=== PATIENT | female | born 1955 | race Caucasian/White ===

== ENCOUNTER 2021-09-02 13:50 | Inpatient (IN) | payer MEDICARE ==
[~2021-09-02] VITALS: Ht 175.3 cm; Wt 86.2 kg
[2021-09-02 14:45] LABS: HEMOGLOBIN 12.7 gm/dl (12.3-15.3); RED BLOOD COUNT 3.9 M/UL (4.00-5.10); WHITE BLOOD COUNT 17.7 K/UL (4.5-11.0)
[2021-09-02 14:59] LABS: BUN/CREATININE RATIO 19 (0-10)
[2021-09-02] MEDS ORDERED: HYDROCODON-ACE1 EAC6 PO (18:33)
[2021-09-02] MEDS ORDERED: PAROXETINE HCL40 MG PO (18:33)
[2021-09-02] MEDS ORDERED: AMLODIPINE BES2.5 MG PO (18:33)
[2021-09-02] MEDS ORDERED: TRELEGY ELLIPT1 EACH INH (18:34)
[2021-09-02] MEDS ORDERED: TIZANIDINE HCL4 MG PO (18:34)
[2021-09-02] MEDS ORDERED: MONTELUKAST SOD10 MG PO (18:34)
[2021-09-02] MEDS ORDERED: IPRAT-ALBUT 0.5-3 ML INH (18:35)
[2021-09-02] MEDS ORDERED: LOSARTAN POTAS100 MG PO (18:35)
[2021-09-02] MEDS ORDERED: MULTIVITAMIN1 EACH PO (18:35)
[2021-09-03 03:10] LABS: HEMOGLOBIN 11.8 gm/dl (12.3-15.3); RED BLOOD COUNT 3.68 M/UL (4.00-5.10)
[2021-09-03 03:31] LABS: WHITE BLOOD COUNT 13.1 K/UL (4.5-11.0)
[2021-09-03 03:53] LABS: BUN/CREATININE RATIO 21 (0-10)
[2021-09-03 10:42] LABS: BORDETELLA PARAPERTUSSIS Not Detected (Not Detectd); BORDETELLA PERTUSSIS Not Detected (Not Detectd); CHLAMYDIA PNEUMONIAE Not Detected (Not Detectd); CORONAVIRUS HKU1 Not Detected (Not Detectd); CORONAVIRUS NL63 Not Detected (Not Detectd); CORONAVIRUS OC43 Not Detected (Not Detectd); CORONOAVIRUS 229E Not Detected (Not Detectd); HUMAN METAPNEUMOVIRUS Not Detected (Not Detectd); HUMAN RHINOVIRUS/ENTEROVIRUS Not Detected (Not Detectd); INFLUENZA A Not Detected (Not Detectd); INFLUENZA B Not Detected (Not Detectd); MYCOPLASMA PNEUMONIAE Not Detected (Not Detectd); PARAINFLUENZA VIRUS 1 Not Detected (Not Detectd); PARAINFLUENZA VIRUS 2 Not Detected (Not Detectd); PARAINFLUENZA VIRUS 3 Not Detected (Not Detectd); PARAINFLUENZA VIRUS 4 Not Detected (Not Detectd); RESPIRATORY SYNCYTIAL VIRUS Not Detected (Not Detectd)
[2021-09-03 12:41] LABS: SARS-CoV-2 NOT DETECTED (Not Detectd)
[2021-09-05 09:06] LABS: RED BLOOD COUNT 3.7 M/UL (4.00-5.10); WHITE BLOOD COUNT 14.2 K/UL (4.5-11.0)
[2021-09-05 09:37] LABS: BUN/CREATININE RATIO 32 (0-10)
[2021-09-05 10:27] LABS: HEMOGLOBIN 11.6 gm/dl (12.3-15.3); RED BLOOD COUNT 3.61 M/UL (4.00-5.10); WHITE BLOOD COUNT 14.2 K/UL (4.5-11.0)
[2021-09-06 04:24] LABS: HEMOGLOBIN 12.2 gm/dl (12.3-15.3); RED BLOOD COUNT 3.79 M/UL (4.00-5.10); WHITE BLOOD COUNT 13.2 K/UL (4.5-11.0)
[2021-09-06 04:52] LABS: BUN/CREATININE RATIO 36 (0-10)
[2021-09-07 03:13] LABS: HEMOGLOBIN 12.8 gm/dl (12.3-15.3); RED BLOOD COUNT 3.96 M/UL (4.00-5.10); WHITE BLOOD COUNT 14.6 K/UL (4.5-11.0)
[2021-09-07 03:52] LABS: BUN/CREATININE RATIO 43 (0-10)
[2021-09-07] MEDS ORDERED: CEFUROXIME500 MG PO (10:37)
[2021-09-07] MEDS ORDERED: CLOPIDOGREL75 MG PO (10:37)
[2021-09-07] MEDS ORDERED: ISOSORBIDE MONO30 MG PO (10:37)
[2021-09-07] MEDS ORDERED: LOPRESSOR 25 MG25 MG PO (10:37)
[2021-09-07] MEDS ORDERED: CRESTOR 10 MG T10 MG PO (10:37)
[2021-09-07] MEDS ORDERED: LASIX40 MG PO (10:37)
[2021-09-07] MEDS ORDERED: ASPIRIN EC81 MG PO (10:37)
== END 2021-09-07 12:05 | disposition home or self-care (01) | DRG 280 ==
LOC: ER1 13:50 → PROG CARE 18:16 → CDU 18:16 → PROG CARE 21:00
PROVIDERS: Emergency Medicine; Internal Medicine Cardiovascular Disease; Physician Assistant; ADMIT Internal Medicine
PROC: 3E0333Z Introduction of Anti-inflammatory into Peripheral Vein, Percutaneous Approach (ICD-10-PCS; principal; 2021-09-02)
PROC: B24BZZ4 Ultrasonography of Heart with Aorta, Transesophageal (ICD-10-PCS; 2021-09-03)
PROC: 4A023N7 Measurement of Cardiac Sampling and Pressure, Left Heart, Percutaneous Approach (ICD-10-PCS; 2021-09-06)
DX: I11.0 Hypertensive heart disease with heart failure (principal); I21.4 Non-ST elevation (NSTEMI) myocardial infarction; J12.2 Parainfluenza virus pneumonia; I50.23 Acute on chronic systolic (congestive) heart failure; J96.11 Chronic respiratory failure with hypoxia; Z20.822 Contact with and (suspected) exposure to COVID-19; E87.2 Acidosis; I43 Cardiomyopathy in diseases classified elsewhere; J43.9 Emphysema, unspecified; F17.210 Nicotine dependence, cigarettes, uncomplicated; E87.6 Hypokalemia; F41.9 Anxiety disorder, unspecified; R73.9 Hyperglycemia, unspecified; Z79.01 Long term (current) use of anticoagulants; Z79.82 Long term (current) use of aspirin; Z99.81 Dependence on supplemental oxygen; Z90.710 Acquired absence of both cervix and uterus; Z88.0 Allergy status to penicillin; Z83.3 Family history of diabetes mellitus; Z80.9 Family history of malignant neoplasm, unspecified
CPT/HCPCS: ECHO; 36415; 36600; 71045; 80048; 80053; 80061; 80307; 82550; 82553; 82803; 83036; 83605; 83735; 83880; 84484; 85025; 85027; 85610; 85730; 87040; 87070; 87077; 87205; 87633; 93005; 93306; 94640; 94664; 94760; 96374; 96375; 99152; 99153; 99285; C1769; C1894; J0456; J0696; J1100; J1644; J1650; J1940; J2185; J2250; J2270; J2930; J3010; J7030; J7040; Q9967; U0002

== ENCOUNTER 2021-09-20 13:52 | Emergency (ER) | payer MEDICARE ==
[~2021-09-20 13:52] MED LIST: AMLODIPINE BES2.5 MG PO; ASPIRIN EC81 MG PO; CEFUROXIME500 MG PO; CLOPIDOGREL75 MG PO; CRESTOR 10 MG T10 MG PO; HYDROCODON-ACE1 EAC6 PO; IPRAT-ALBUT 0.5-3 ML INH; ISOSORBIDE MONO30 MG PO; LASIX40 MG PO; LOPRESSOR 25 MG25 MG PO; LOSARTAN POTAS100 MG PO; MONTELUKAST SOD10 MG PO; MULTIVITAMIN1 EACH PO; PAROXETINE HCL40 MG PO; TIZANIDINE HCL4 MG PO; TRELEGY ELLIPT1 EACH INH
[2021-09-20 14:26] LABS: HEMOGLOBIN 11.5 gm/dl (12.3-15.3); RED BLOOD COUNT 3.73 M/UL (4.00-5.10); WHITE BLOOD COUNT 10.5 K/UL (4.5-11.0)
[2021-09-20 14:47] LABS: BUN/CREATININE RATIO 11 (0-10)
[2021-09-20] MEDS ORDERED: OMNICEF 300 MG300 MG PO (16:07)
== END 2021-09-20 16:10 | disposition home or self-care (01) ==
LOC: ER1 13:52
PROVIDERS: Physician Assistant
DX: N39.0 Urinary tract infection, site not specified (principal); R31.9 Hematuria, unspecified; F17.200 Nicotine dependence, unspecified, uncomplicated; I11.9 Hypertensive heart disease without heart failure; I25.10 Atherosclerotic heart disease of native coronary artery without angina pectoris; I25.2 Old myocardial infarction; E78.5 Hyperlipidemia, unspecified; J44.9 Chronic obstructive pulmonary disease, unspecified
CPT/HCPCS: 80053; 81001; 85025; 85610; 87086; 99283

== ENCOUNTER → 2021-12-23 | Outpatient (CLI) | payer MEDICARE ==
[~2021-12-23] MED LIST changes: +OMNICEF 300 MG300 MG PO
== END ==
LOC: HEART 5 15:00 → ECHO 15:08
DX: I25.10 Atherosclerotic heart disease of native coronary artery without angina pectoris (principal); I50.22 Chronic systolic (congestive) heart failure; I42.0 Dilated cardiomyopathy
CPT/HCPCS: ECHO; 93306